=== PATIENT | female | born 2000 | race Caucasian/White ===

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

== ENCOUNTER → 2018-03-26 | Outpatient (CLI) | payer MEDICAID | LOC: RAD 17:33 | DX: M79.671 Pain in right foot (principal); Z87.81 Personal history of (healed) traumatic fracture; Z96.9 Presence of functional implant, unspecified; Z98.890 Other specified postprocedural states ==

== ENCOUNTER 2022-02-09 19:43 | Emergency (ER) | payer SELFPAY ==
[~2022-02-09] VITALS: Ht 154.9 cm; Wt 52.3 kg
[2022-02-09] MEDS ORDERED: AMOXIL500 M1 PO (20:59)
[2022-02-09 21:16] VITALS: BP 143/80
== END 2022-02-09 21:16 | disposition home or self-care (01) ==
LOC: ED 19:43
DX: K02.9 Dental caries, unspecified (principal); K03.81 Cracked tooth; F17.210 Nicotine dependence, cigarettes, uncomplicated; Z28.310 Unvaccinated for COVID-19
CPT/HCPCS: J1885

== ENCOUNTER 2022-05-08 16:46 | Emergency (ER) | payer SELFPAY ==
[~2022-05-08 16:46] MED LIST changes: +AMOXIL500 M1 PO
[2022-05-08 16:53] VITALS: BP 135/86
[2022-05-08] MEDS ORDERED: AMOXICILLIN AND1 TA2 PO (17:38)
== END 2022-05-08 17:52 | disposition home or self-care (01) ==
LOC: ED 16:46
DX: K04.7 Periapical abscess without sinus (principal); K02.9 Dental caries, unspecified; F17.210 Nicotine dependence, cigarettes, uncomplicated; Z28.310 Unvaccinated for COVID-19
CPT/HCPCS: J0696; J1885

== ENCOUNTER 2022-05-10 10:20 | Emergency (ER) | payer SELFPAY ==
[~2022-05-10] VITALS: Ht 162.6 cm; Wt 52.3 kg
[~2022-05-10 10:20] MED LIST changes: +AMOXICILLIN AND1 TA2 PO
[2022-05-10] MEDS ORDERED: AMOXICILLIN 50500 MG PO (11:36)
[2022-05-10 11:55] VITALS: BP 112/77
== END 2022-05-10 11:48 | disposition home or self-care (01) ==
LOC: ED 10:20
DX: K04.7 Periapical abscess without sinus (principal); F17.210 Nicotine dependence, cigarettes, uncomplicated; Z28.310 Unvaccinated for COVID-19
CPT/HCPCS: J0696

== ENCOUNTER 2022-05-21 17:23 | Emergency (ER) | payer SELFPAY ==
[~2022-05-21 17:23] MED LIST changes: +AMOXICILLIN 50500 MG PO
[2022-05-21] MEDS ORDERED: AMOXIL500 M1 PO (18:18)
[2022-05-21 18:25] VITALS: BP 98/66
== END 2022-05-21 18:25 | disposition home or self-care (01) ==
LOC: ED 17:23
DX: K04.7 Periapical abscess without sinus (principal); F17.210 Nicotine dependence, cigarettes, uncomplicated; Z28.310 Unvaccinated for COVID-19

== ENCOUNTER 2022-05-29 17:32 | Emergency (ER) | payer SELFPAY ==
[~2022-05-29] VITALS: Ht 154.9 cm; Wt 59.1 kg
[2022-05-29] MEDS ORDERED: AMOXIL500 M1 PO (18:31)
[2022-05-29 19:21] VITALS: BP 117/84
== END 2022-05-29 19:21 | disposition home or self-care (01) ==
LOC: ED 17:32
DX: K04.7 Periapical abscess without sinus (principal); K02.9 Dental caries, unspecified; F17.210 Nicotine dependence, cigarettes, uncomplicated; Z28.310 Unvaccinated for COVID-19
CPT/HCPCS: J0696; J1885

== ENCOUNTER 2022-10-30 04:43 | Emergency (ER) | payer SELFPAY ==
[~2022-10-30] VITALS: Wt 61.4 kg
[2022-10-30 06:18] VITALS: BP 122/78
== END 2022-10-30 06:18 | disposition home or self-care (01) ==
LOC: ED 04:43
DX: K04.7 Periapical abscess without sinus (principal); F17.210 Nicotine dependence, cigarettes, uncomplicated; Z28.310 Unvaccinated for COVID-19
CPT/HCPCS: J0696

== ENCOUNTER 2024-05-01 17:13 | Emergency (ER) | payer SELFPAY ==
[~2024-05-01] VITALS: Ht 157.5 cm; Wt 55.5 kg
[~2024-05-01 17:13] MED LIST changes: +IMITREX 25MG TA25 MG PO; +METRONIDAZOLE500 M1 PO; +ZYRTEC10 M3 PO
[2024-05-01] MEDS ORDERED: GOOD NEIGHBOR200 M1 PO (17:30)
[2024-05-01] MEDS ORDERED: metroNIDAZOLE 250 MG TABLET PO ONE (17:45)
[2024-05-01] MEDS ORDERED: METRONIDAZOLE500 M1 PO (18:04)
[2024-05-01] MEDS ORDERED: AMOXICILLIN AND1 TA2 PO (18:04)
[2024-05-01] MEDS ORDERED: Ketorolac 30 MG/ML VIAL IM ONE (18:15)
[2024-05-01 19:15] VITALS: BP 124/68
== END 2024-05-01 19:15 | disposition home or self-care (01) ==
LOC: ED 17:13
DX: K12.2 Cellulitis and abscess of mouth (principal); K04.7 Periapical abscess without sinus
CPT/HCPCS: J0696; J1885

== ENCOUNTER 2024-08-10 19:50 | Emergency (ER) | payer MEDICAID ==
[2024-08-10] MEDS ORDERED: BACTRIM DS TAB1 EACH PO (21:10)
[2024-08-10 21:30] VITALS: BP 114/72
[2024-08-14] MEDS ORDERED: LEVOFLOXACIN750 MG PO (13:27)
== END 2024-08-10 21:30 | disposition home or self-care (01) ==
LOC: ED 19:50
DX: N61.0 Mastitis without abscess (principal); F17.210 Nicotine dependence, cigarettes, uncomplicated
CPT/HCPCS: J0696

== ENCOUNTER 2024-09-04 18:16 | Emergency (ER) | payer MEDICAID ==
[~2024-09-04] VITALS: Wt 61.3 kg
[~2024-09-04 18:16] MED LIST changes: +BACTRIM DS TAB1 EACH PO; +LEVOFLOXACIN750 MG PO
[2024-09-04 18:48] VITALS: BP 142/107
== END 2024-09-04 18:58 | disposition home or self-care (01) ==
LOC: ED 18:16
DX: S09.90XA Unspecified injury of head, initial encounter (principal); S79.921A Unspecified injury of right thigh, initial encounter; S49.91XA Unspecified injury of right shoulder and upper arm, initial encounter; Y04.8XXA Assault by other bodily force, initial encounter; Y92.810 Car as the place of occurrence of the external cause

== ENCOUNTER 2024-10-07 02:03 | Emergency (ER) | payer MEDICAID ==
[~2024-10-07] VITALS: Ht 154.9 cm; Wt 56.8 kg
[2024-10-07 02:49] VITALS: BP 118/91
== END 2024-10-07 02:49 | disposition home or self-care (01) ==
LOC: ED 02:03
DX: K02.9 Dental caries, unspecified (principal)